=== PATIENT | male | born 1990 | race Two or more races ===

== ENCOUNTER 2022-11-04 09:42 | Emergency (ER) | payer BC, OTHER ==
[~2022-11-04] VITALS: Ht 175.3 cm; Wt 88.0 kg
[2022-11-04] MEDS ORDERED: LORazepam 2MG/ML-1ML VIAL IV ONE (10:00)
[2022-11-04] MEDS ORDERED: ASPirin 325 MG TAB PO ONE (10:00)
[2022-11-04 10:06] VITALS: BP 151/76
[2022-11-04 10:22] LABS: Basophils # (auto) 0 10 ^3/uL (0-0.2); Basophils % (auto) 0.4 % (0.0-2.0); Eosinophils # (auto) 0.1 10 ^3/uL (0-0.8); Eosinophils % (auto) 0.8 % (0.0-7.0); Hematocrit 45.7 % (41.0-53.0); Hemoglobin 15.5 g/dL (13.5-17.5); Lymphocytes # (auto) 0.9 10 ^3/uL (0.4-5.4); Lymphocytes % (auto) 7.8 % (10.0-50.0); Mean Corpuscular Hemoglobin 28.5 pg (28.0-32.0); Mean Corpuscular Volume 83.7 fL (80.0-100.0); Monocytes % (auto) 8.4 % (0.0-12.0); Neutrophils # (auto) 9.9 10 ^3/uL (1.6-8.6); Neutrophils % (auto) 82.6 % (37.0-80.0); Red Blood Cells 5.46 10^6/uL (4.5-5.90); Red Cell Distribution Width 13.5 % (11.8-14.3)
[2022-11-04 10:38] LABS: Albumin 4.4 g/dL (3.4-5.0); Calcium 9.3 mg/dL (8.5-10.1); Potassium 3.9 mmol/L (3.5-5.1)
[2022-11-04 10:41] LABS: BUN/Creatinine Ratio 7.8; Bilirubin, Total 0.3 mg/dL (0.2-1.0); Total Protein 8.1 g/dL (6.4-8.2)
[2022-11-04] MEDS ORDERED: AZIT250T9 PO (11:56)
[2022-11-04] MEDS ORDERED: PRED10TA PO (11:56)
[2022-11-04] MEDS ORDERED: AZITHROMYCIN 250 MG TAB PO ONE (12:00)
[2022-11-04] MEDS ORDERED: cefTRIAXone SOD 1,000 MG VL IM ONE (12:00)
== END 2022-11-04 13:07 | disposition home or self-care (01) ==
LOC: ER 09:42
DX: U07.1 COVID-19 (principal)
CPT/HCPCS: 36415; 71045; 80053; 84484; 85025; 85379; 87426; 87804; 93005; 96372; 99285; J0696; J2060